=== PATIENT | female | born 1935 | race Caucasian/White ===

== ENCOUNTER 2016-09-24 19:43 | Emergency (ER) | payer MEDICARE, OTHER ==
[2016-09-24] MEDS ORDERED: KETOROLAC 30 MG/ML 1 ML VIAL IVP STA (20:22)
[2016-09-24] MEDS ORDERED: SODIUM CHLORIDE 0.9% 1,000 ML IV STA (20:22)
[2016-09-24] MEDS ORDERED: ACETAMINOPHEN TAB 500 MG TAB PO STA (20:22)
--- NOTE | 2016-09-24 20:48 | ED ---
General Adult HPI - General Chief complaint: Shortness of Breath Stated complaint: Congestion/Cough Time Seen by Provider: 09/24/16 20:15 Source: patient Mode of arrival: ambulatory Limitations: no limitations - History of Present Illness Initial comments: Patient is a 81-year-old female past medical history's presenting with shortness of breath, cough, congestion past 2 days. Patient admits to nonproductive cough. 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 Patient has not been taking any Tylenol, Motrin, [id number] cough medications for her symptoms. Denies flu vaccination. Patient went to [facility] for her symptoms for which she was given a breathing treatment as well as Rocephin IM. Chest x-ray mass versus pneumonia. Patient was sent to the ER for CT. Chest x-ray was reviewed by myself and concern for right middle lobe pneumonia. - Related Data Previous Rx's Medication Instructions Recorded Doxycycline Monohydrate [Monodox] 100 mg PO Q12HR #20 cap 09/24/16 Allergies Allergy/AdvReac Type Severity Reaction Status Date / Time No Known Allergies Allergy Verified 09/24/16 20:12 Review of Systems ROS Statement: Those systems with pertinent positive or pertinent negative responses have been documented in the HPI. Constitutional: No fever and no chills. HENT: +congestion, no rhinorrhea and no sore throat. Eyes: No discharge and no redness. Respiratory: + cough and +shortness of breath. Cardiovascular: No chest pain and no palpitations. Gastrointestinal: No nausea, no vomiting, no abdominal pain and no diarrhea. Genitourinary: No dysuria and no hematuria. Musculoskeletal: No back pain and no arthralgias. Skin: No pallor and no rash. Neurological: No dizziness and No headaches. ROS Other: All systems not noted in ROS Statement are negative. Past Medical History Past Medical History: Osteoarthritis (OA) History of Any Multi-Drug Resistant Organisms: None Reported Past Surgical History: Joint Replacement Additional Past Surgical History / Comment(s): lt knee replacement Past Psychological History: No Psychological Hx Reported Smoking Status: Former smoker Past Alcohol Use History: None Reported Additional Past Alcohol Use History / Comment(s): quit smoking approx 1974, smoked for approx 30 yrs Past Drug Use History: None Reported - Past Family History Father Family Medical History: Cancer Additional Family Medical History / Comment(s): lung Mother Additional Family Medical History / Comment(s): at age approx 90 General Exam - General Exam Comments Initial Comments: Constitutional: Patient appears well-developed and well-nourished. No distress. Warm to the touch. Head: Normocephalic and atraumatic. Eyes: Conjunctivae and EOM are normal. Right eye exhibits no discharge. Left eye exhibits no discharge. No scleral icterus. Neck: Normal range of motion. Neck supple. Cardiovascular: Normal rate and regular rhythm. No murmur heard. Pulmonary/Chest: Effort normal and breath sounds normal. No respiratory distress. No wheezes. Abdominal: Soft. No distension. There is no tenderness. There is no rebound and no guarding. Musculoskeletal: Normal range of motion. No edema or tenderness. Neurological: Patient alert and oriented to person, place, and time. Skin: Skin is warm and dry. Not diaphoretic. Nursing notes and vitals reviewed. Limitations: no limitations Course Vital Signs 09/24/16 09/24/16 09/24/16 20:04 20:36 21:31 Temperature 100.6 F H 99.3 F Pulse Rate 85 81 68 Respiratory 20 20 20 Rate Blood Pressure 174/84 143/64 142/73 O2 Sat by Pulse 92 L 94 L Oximetry 09/24/16 09/24/16 22:45 23:15 Temperature 98.4 F 98.2 F Pulse Rate 72 78 Respiratory 18 18 Rate Blood Pressure 112/72 116/72 O2 Sat by Pulse 94 L 98 Oximetry - Reevaluation(s) Reevaluation #1: Prior to discharge, patient was resting comfortably in bed. Course of stay improved. Denies pain. Discussed physical exam and diagnostic tests with patient. Questions answered and patient is agreeable to discharge with close follow up with Primary Care Physician. Instructed to return to Emergency Department if symptoms worsen. EKG Findings - EKG Comments: EKG Findings:: Rate 86. NSR with PVC. No ST-T wave changes. CO internal normal . QRS interval normal. QTc duration normal. Medical Decision Making - Medical Decision Making Patient is a 81-year-old female presenting with cough and congestion for the past 2 days. Patient with [facility] of concern for pneumonia. She was referred to ER for further management. WBC 6.8. BUN 18. Influenza negative. Chest x-ray concerning for right middle lobe pneumonia. Patient has no risk factors for age. Patient has a curb 65 score of 1 for her age. Patient was given option of hospitalization versus outpatient management and she is requesting outpatient management. Patient instructed to return for any worsening of symptoms or not able to tolerate antibiotics. - Lab Data Result diagrams: 09/24/16 20:45 09/24/16 20:45 Lab Results 09/24/16 09/24/16 09/24/16 Range/Units 20:45 20:45 20:45 WBC 6.8 (3.8-10.6) k/uL RBC 4.87 (3.80-5.40) m/uL Hgb 14.5 (11.4-16.0) gm/dL Hct 44.3 (34.0-46.0) % MCV 90.9 (80.0-100.0) fL MCH 29.8 (25.0-35.0) pg MCHC 32.7 (31.0-37.0) g/dL RDW 12.9 (11.5-15.5) % Plt Count 239 (150-450) k/uL Neutrophils % 72 % Lymphocytes % 17 % Monocytes % 7 % Eosinophils % 0 % Basophils % 1 % Neutrophils # 4.9 (1.3-7.7) k/uL Lymphocytes # 1.2 (1.0-4.8) k/uL Monocytes # 0.5 (0-1.0) k/uL Eosinophils # 0.0 (0-0.7) k/uL Basophils # 0.1 (0-0.2) k/uL Sodium 137 (137-145) mmol/L Potassium 4.0 (3.5-5.1) mmol/L Chloride 99 (98-107) mmol/L Carbon Dioxide 26 (22-30) mmol/L Anion Gap 12 mmol/L BUN 18 H (7-17) mg/dL Creatinine 1.02 (0.52-1.04) mg/dL Est GFR (MDRD) Af Amer >60 (>60 ml/min/1.73 sqM) Est GFR (MDRD) Non-Af 52 (>60 ml/min/1.73 sqM) Glucose 106 H (74-99) mg/dL Plasma Lactic Acid Toño 0.9 (0.7-2.0) mmol/L Calcium 10.3 H (8.4-10.2) mg/dL Magnesium 1.6 (1.6-2.3) mg/dL Influenza Type A RNA (Not Detectd) Influenza Type B (PCR) (Not Detectd) 09/24/16 Range/Units 21:00 WBC (3.8-10.6) k/uL RBC (3.80-5.40) m/uL Hgb (11.4-16.0) gm/dL Hct (34.0-46.0) % MCV (80.0-100.0) fL MCH (25.0-35.0) pg MCHC (31.0-37.0) g/dL RDW (11.5-15.5) % Plt Count (150-450) k/uL Neutrophils % % Lymphocytes % % Monocytes % % Eosinophils % % Basophils % % Neutrophils # (1.3-7.7) k/uL Lymphocytes # (1.0-4.8) k/uL Monocytes # (0-1.0) k/uL Eosinophils # (0-0.7) k/uL Basophils # (0-0.2) k/uL Sodium (137-145) mmol/L Potassium (3.5-5.1) mmol/L Chloride (98-107) mmol/L Carbon Dioxide (22-30) mmol/L Anion Gap mmol/L BUN (7-17) mg/dL Creatinine (0.52-1.04) mg/dL Est GFR (MDRD) Af Amer (>60 ml/min/1.73 sqM) Est GFR (MDRD) Non-Af (>60 ml/min/1.73 sqM) Glucose (74-99) mg/dL Plasma Lactic Acid Toño (0.7-2.0) mmol/L Calcium (8.4-10.2) mg/dL Magnesium (1.6-2.3) mg/dL Influenza Type A RNA Not Detected (Not Detectd) Influenza Type B (PCR) Not Detected (Not Detectd) Disposition Clinical Impression: CAP (community acquired pneumonia) Disposition: HOME SELF-CARE Condition: Good Instructions: Pneumonia (ED) Prescriptions: Doxycycline Monohydrate [Monodox] 100 mg PO Q12HR #20 cap Referrals: Maren Jones MD [Primary Care Provider] - 1-2 days
[2016-09-24 21:07] LABS: Basophils # (A) 0.1 k/uL (0-0.2); Basophils % (A) 1 %; CH 30.6; CHCM 33.7; Eosinophils % (A) 0 %; HCT 44.3 % (34.0-46.0); HDW 2.28; HGB 14.5 gm/dL (11.4-16.0); Luc # (Auto) 0.15; Luc % (Auto) 2; Lymphocytes # (A) 1.2 k/uL (1.0-4.8); Lymphocytes % (A) 17 %; MCH 29.8 pg (25.0-35.0); MCHC 32.7 g/dL (31.0-37.0); MCV 90.9 fL (80.0-100.0); Mean Platelet Volume 6.6; Monocytes # (A) 0.5 k/uL (0-1.0); Monocytes % (A) 7 %; Neutrophils # (A) 4.9 k/uL (1.3-7.7); Neutrophils % (A) 72 %; RBC 4.87 m/uL (3.80-5.40); RDW 12.9 % (11.5-15.5); WBC 6.8 k/uL (3.8-10.6); WBC (Perox) 6.85
[2016-09-24 21:15] LABS: Anion Gap 12 mmol/L; Blood Urea Nitrogen 18 mg/dL (7-17); Calcium 10.3 mg/dL (8.4-10.2); Carbon Dioxide 26 mmol/L (22-30); Chloride 99 mmol/L (98-107); Glucose 106 mg/dL (74-99); Magnesium 1.6 mg/dL (1.6-2.3); Non-African American GFR(MDRD) 52 (>60 ml/min/1.73 sqM); Sodium 137 mmol/L (137-145)
[2016-09-24 22:51] VITALS: RESP 18
--- NOTE | 2016-09-24 22:58 | XR ---
EXAMINATION TYPE: XR chest 2V DATE OF EXAM: 09/24/2016 10:53 PM COMPARISON: 09/22/2013 HISTORY: Cough and pneumonia TECHNIQUE: Frontal and lateral views of the chest are obtained. FINDINGS: There is a patchy area of pneumonic consolidation in the right midlung on the frontal view that measures 5 x 3 cm. The other lung lacey are clear. There are no hilar masses. Heart size is no rmal. There is no pleural effusion. There is spurring in the thoracic spine. Bony thorax is intact. T here is no heart failure. IMPRESSION: There is new pneumonic infiltrate in the right midlung compared to old exam and probably due to bronchopneumonia. Follow-up is recommended to show radiographic clearing.
[2016-09-24 23:16] VITALS: BP 116/72; PULSE 78; TEMP 98.2
== END 2016-09-24 23:17 | disposition home or self-care (01) ==
LOC: EC 19:43
DX: J18.9 Pneumonia, unspecified organism (principal); Z87.891 Personal history of nicotine dependence
CPT/HCPCS: 36415; 93005; 80048; 83605; 83735; 85025; 87040; 87502; 71020; 99285; 96374; 96361; J1885

== ENCOUNTER 2016-10-16 13:36 | Emergency (ER) | payer MEDICARE, OTHER ==
[2016-10-16 13:59] VITALS: RESP 18
[2016-10-16] MEDS ORDERED: IPRATROPIUM-ALBUTEROL 3 ML NEB INHALATION STA (15:37)
[2016-10-16] MEDS ORDERED: SODIUM CHLORIDE 0.9% 500 ML IV STA (15:37)
[2016-10-16] MEDS ORDERED: SODIUM CHLORIDE 0.9% 1,000 ML IV STA (15:37)
--- NOTE | 2016-10-16 15:58 | ED ---
General Adult HPI - General Chief complaint: Upper Respiratory Infection Stated complaint: cough/poss pneumonia Time Seen by Provider: 10/16/16 15:06 Source: patient, RN notes reviewed, old records reviewed Mode of arrival: ambulatory Limitations: no limitations - History of Present Illness Initial comments: This is a 81-year-old female ER for evaluation. This patient presents to ER for evaluation of shortness of breath cough and congestion. Patient does have a recent history and diagnosis of pneumonia. Patient has a remote history of smoking, but no other significant heart disease or lung disease. Patient at this time denies any chest pain states she will go with cough congestion and episodic chills this morning. No significant shortness of breath, no other sick contacts no travel history. Patient states she did have her pneumonia resolved - Related Data Home Medications Medication Instructions Recorded Confirmed Albuterol Nebulized [Ventolin 2.5 mg INHALATION RT-Q6H PRN 10/16/16 10/16/16 Nebulized] Ascorbic Acid [Vitamin C] 500 mg PO DAILY 10/16/16 10/16/16 Biotin 5 mg PO DAILY 10/16/16 10/16/16 Calcium Carbonate [Calcium] 600 mg PO BID 10/16/16 10/16/16 Cyanocobalamin [Vitamin B-12] 500 mcg PO DAILY 10/16/16 10/16/16 Multivitamins, Thera [Multivitamin] 1 tab PO DAILY 10/16/16 10/16/16 Belding-3 Fatty Acids/Fish Oil [Fish 1 cap PO BID 10/16/16 10/16/16 Oil 1,000 mg Softgel] Previous Rx's Medication Instructions Recorded Azithromycin [Zithromax Z-pack] 0 mg PO DIRECTED #6 tab 10/16/16 Benzonatate [Tessalon Perles] 100 mg PO TID #30 cap 10/16/16 Ibuprofen [Motrin] 600 mg PO Q8HR PRN #30 tab 10/16/16 Allergies Allergy/AdvReac Type Severity Reaction Status Date / Time No Known Allergies Allergy Verified 10/16/16 15:06 Review of Systems ROS Statement: Those systems with pertinent positive or pertinent negative responses have been documented in the HPI. ROS Other: All systems not noted in ROS Statement are negative. Past Medical History Past Medical History: Osteoarthritis (OA) History of Any Multi-Drug Resistant Organisms: None Reported Past Surgical History: Joint Replacement Additional Past Surgical History / Comment(s): lt knee replacement Past Psychological History: No Psychological Hx Reported Smoking Status: Former smoker Past Alcohol Use History: None Reported Additional Past Alcohol Use History / Comment(s): quit smoking approx 1974, smoked for approx 30 yrs Past Drug Use History: None Reported - Past Family History Father Family Medical History: Cancer Additional Family Medical History / Comment(s): lung Mother Additional Family Medical History / Comment(s): at age approx 90 General Exam Limitations: no limitations General appearance: alert, in no apparent distress, anxious Head exam: Present: atraumatic, normocephalic, normal inspection Eye exam: Present: normal appearance, PERRL, EOMI. Absent: scleral icterus, conjunctival injection, periorbital swelling ENT exam: Present: normal exam, mucous membranes moist Neck exam: Present: normal inspection. Absent: tenderness, meningismus, lymphadenopathy Respiratory exam: Present: normal lung sounds bilaterally. Absent: respiratory distress, wheezes, rales, rhonchi, stridor Cardiovascular Exam: Present: regular rate, normal rhythm, normal heart sounds. Absent: systolic murmur, diastolic murmur, rubs, gallop, clicks GI/Abdominal exam: Present: soft, normal bowel sounds. Absent: distended, tenderness, guarding, rebound, rigid Extremities exam: Present: normal inspection, full ROM, normal capillary refill. Absent: tenderness, pedal edema, joint swelling, calf tenderness Back exam: Present: normal inspection Neurological exam: Present: alert, oriented X3, CN II-XII intact Psychiatric exam: Present: normal affect, normal mood Skin exam: Present: warm, dry, intact, normal color. Absent: rash Course Vital Signs 10/16/16 10/16/16 10/16/16 13:55 16:13 16:32 Temperature 99.8 F H Pulse Rate 83 83 86 Respiratory 18 Rate Blood Pressure 169/86 O2 Sat by Pulse 96 Oximetry 10/16/16 18:02 Temperature 100.9 F H Pulse Rate 93 Respiratory 18 Rate Blood Pressure 150/65 O2 Sat by Pulse 99 Oximetry - Reevaluation(s) Reevaluation #1: 10/16/16 18:52 Patient on recheck is improved after breathing treatment, no acute distress, no shortness of breath EKG Findings - EKG Comments: EKG Findings:: EKG shows normal sinus rhythm rate of 75, MA 140, QRS 90, QTC 426 Medical Decision Making - Medical Decision Making Female with cough congestion follow recurrence of pneumonia, patient was treated with Bactrim for last exacerbation. Patient also noted fever. Increasing cough and congestion. Lab work looks normal patient is in [place] for distress, vital signs are normal stable x-ray is negative CT showing mild pneumonia we'll treat for atypical antibiotic coverage, patient can be discharged home, feels good to go home - Lab Data Result diagrams: 10/16/16 15:52 10/16/16 15:52 Lab Results 10/16/16 10/16/16 10/16/16 Range/Units 15:52 15:52 15:52 WBC 10.9 H (3.8-10.6) k/uL RBC 5.09 (3.80-5.40) m/uL Hgb 15.1 (11.4-16.0) gm/dL Hct 46.8 H (34.0-46.0) % MCV 92.1 (80.0-100.0) fL MCH 29.8 (25.0-35.0) pg MCHC 32.4 (31.0-37.0) g/dL RDW 13.2 (11.5-15.5) % Plt Count 241 (150-450) k/uL Neutrophils % 83 % Lymphocytes % 12 % Monocytes % 4 % Eosinophils % 1 % Basophils % 1 % Neutrophils # 9.0 H (1.3-7.7) k/uL Lymphocytes # 1.3 (1.0-4.8) k/uL Monocytes # 0.4 (0-1.0) k/uL Eosinophils # 0.1 (0-0.7) k/uL Basophils # 0.1 (0-0.2) k/uL PT 10.2 (9.0-12.0) sec INR 1.0 (<1.1) APTT 23.9 (22.0-30.0) sec D-Dimer 0.87 H (<0.60) mg/L FEU Sodium (137-145) mmol/L Potassium (3.5-5.1) mmol/L Chloride (98-107) mmol/L Carbon Dioxide (22-30) mmol/L Anion Gap mmol/L BUN (7-17) mg/dL Creatinine (0.52-1.04) mg/dL Est GFR (MDRD) Af Amer (>60 ml/min/1.73 sqM) Est GFR (MDRD) Non-Af (>60 ml/min/1.73 sqM) Glucose (74-99) mg/dL Calcium (8.4-10.2) mg/dL Magnesium (1.6-2.3) mg/dL Total Bilirubin (0.2-1.3) mg/dL AST (14-36) U/L ALT (9-52) U/L Alkaline Phosphatase (38-126) U/L Total Creatine Kinase 63 (30-135) U/L CK-MB (CK-2) 0.8 (0.0-2.4) ng/mL CK-MB (CK-2) Rel Index 1.3 Troponin I <0.012 (0.000-0.034) ng/mL NT-Pro-B Natriuret Pep pg/mL Total Protein (6.3-8.2) g/dL Albumin (3.5-5.0) g/dL 10/16/16 10/16/16 Range/Units 15:52 15:52 WBC (3.8-10.6) k/uL RBC (3.80-5.40) m/uL Hgb (11.4-16.0) gm/dL Hct (34.0-46.0) % MCV (80.0-100.0) fL MCH (25.0-35.0) pg MCHC (31.0-37.0) g/dL RDW (11.5-15.5) % Plt Count (150-450) k/uL Neutrophils % % Lymphocytes % % Monocytes % % Eosinophils % % Basophils % % Neutrophils # (1.3-7.7) k/uL Lymphocytes # (1.0-4.8) k/uL Monocytes # (0-1.0) k/uL Eosinophils # (0-0.7) k/uL Basophils # (0-0.2) k/uL PT (9.0-12.0) sec INR (<1.1) APTT (22.0-30.0) sec D-Dimer (<0.60) mg/L FEU Sodium 142 (137-145) mmol/L Potassium 4.0 (3.5-5.1) mmol/L Chloride 104 (98-107) mmol/L Carbon Dioxide 27 (22-30) mmol/L Anion Gap 11 mmol/L BUN 14 (7-17) mg/dL Creatinine 0.80 (0.52-1.04) mg/dL Est GFR (MDRD) Af Amer >60 (>60 ml/min/1.73 sqM) Est GFR (MDRD) Non-Af >60 (>60 ml/min/1.73 sqM) Glucose 108 H (74-99) mg/dL Calcium 10.3 H (8.4-10.2) mg/dL Magnesium 2.0 (1.6-2.3) mg/dL Total Bilirubin 0.9 (0.2-1.3) mg/dL AST 32 (14-36) U/L ALT 39 (9-52) U/L Alkaline Phosphatase 71 (38-126) U/L Total Creatine Kinase (30-135) U/L CK-MB (CK-2) (0.0-2.4) ng/mL CK-MB (CK-2) Rel Index Troponin I (0.000-0.034) ng/mL NT-Pro-B Natriuret Pep 119 pg/mL Total Protein 8.2 (6.3-8.2) g/dL Albumin 4.6 (3.5-5.0) g/dL - Radiology Data Radiology results: report reviewed (Chest x-ray is improved, CT shows probable residual pneumonia), image reviewed Disposition Clinical Impression: CAP (community acquired pneumonia) Disposition: HOME SELF-CARE Condition: Good Instructions: Community Acquired Pneumonia (ED) Prescriptions: Azithromycin [Zithromax Z-pack] 0 mg PO DIRECTED #6 tab Benzonatate [Tessalon Perles] 100 mg PO TID #30 cap Ibuprofen [Motrin] 600 mg PO Q8HR PRN #30 tab PRN Reason: Fever Referrals: Maren Jones MD [Primary Care Provider] - 1-2 days
[2016-10-16 16:11] LABS: Basophils # (A) 0.1 k/uL (0-0.2); Basophils % (A) 1 %; CH 30.3; Eosinophils # (A) 0.1 k/uL (0-0.7); Eosinophils % (A) 1 %; HCT 46.8 % (34.0-46.0); HDW 2.32; HGB 15.1 gm/dL (11.4-16.0); Luc % (Auto) 1; Lymphocytes # (A) 1.3 k/uL (1.0-4.8); Lymphocytes % (A) 12 %; MCH 29.8 pg (25.0-35.0); MCHC 32.4 g/dL (31.0-37.0); MCV 92.1 fL (80.0-100.0); Mean Platelet Volume 6.2; Monocytes # (A) 0.4 k/uL (0-1.0); Monocytes % (A) 4 %; Neutrophils % (A) 83 %; RBC 5.09 m/uL (3.80-5.40); RDW 13.2 % (11.5-15.5); WBC 10.9 k/uL (3.8-10.6); WBC (Perox) 10.76
[2016-10-16 16:19] LABS: ALT 39 U/L (9-52); AST 32 U/L (14-36); Alkaline Phosphatase 71 U/L (38-126); Anion Gap 11 mmol/L; Blood Urea Nitrogen 14 mg/dL (7-17); Calcium 10.3 mg/dL (8.4-10.2); Carbon Dioxide 27 mmol/L (22-30); Chloride 104 mmol/L (98-107); Glucose 108 mg/dL (74-99); Non-African American GFR(MDRD) >60 (>60 ml/min/1.73 sqM); Sodium 142 mmol/L (137-145); Total Bilirubin 0.9 mg/dL (0.2-1.3); Total Protein 8.2 g/dL (6.3-8.2)
[2016-10-16 16:27] LABS: Prothrombin Time 10.2 sec (9.0-12.0)
[2016-10-16 16:28] LABS: Partial Thromboplastin Time 23.9 sec (22.0-30.0)
[2016-10-16 16:39] LABS: Creatine Kinase 63 U/L (30-135)
[2016-10-16 16:53] LABS: Creatine Kinase MB 0.8 ng/mL (0.0-2.4); Troponin I <0.012 ng/mL (0.000-0.034)
--- NOTE | 2016-10-16 16:58 | XR ---
EXAMINATION TYPE: XR chest 2V DATE OF EXAM: 10/16/2016 4:52 PM COMPARISON: Prior chest x-ray 24 September 2016 HISTORY: Difficulty breathing, shortness of breath and cough TECHNIQUE: Frontal and lateral views of the chest are obtained. FINDINGS: There is no focal air space opacity, pleural effusion, or pneumothorax seen. The cardiac silhouette size is within normal limits. There is improvement in the airspace disease seen in the r ight upper lobe on prior exam. There are overlying cardiac leads. No pneumothorax or pleural effusion . Cardiac mediastinal silhouette, pulmonary vascularity and rick are stable. Prominent lung volumes s uggest underlying COPD. The aorta is dense. The osseous structures are intact. IMPRESSION: Improvement in patient's pneumonia.
[2016-10-16] MEDS ORDERED: RX INFO: IV CONTRAST WAS GIVEN 1 EACH MISC MISCELLANE PRN (17:18)
--- NOTE | 2016-10-16 18:18 | CT ---
EXAMINATION TYPE: CT angio chest DATE OF EXAM: 10/16/2016 5:57 PM COMPARISON: 09/22/2013 HISTORY: cough today. Hx of recent pneumonia. CT DLP: 316.3 mGycm Automated exposure control for dose reduction was used. CONTRAST: CTA scan of the thorax is performed with IV Contrast, patient injected with 50 mL of Omnipaque 350, p ulmonary embolism protocol. There are 3-D post processed images.. FINDINGS: There is a mild reticular infiltrate in the right midlung. There is no evidence of a pulmonary mass. There is no pleural effusion. I see no definite filling defects in the pulmonary arteries. Thoracic a corry shows no evidence of aneurysm or dissection. Heart size is normal. There is no pericardial effus ion. There is spurring in the thoracic spine. There is a hiatal hernia. There are no hilar masses. Th ere is no mediastinal adenopathy. IMPRESSION: NO EVIDENCE OF PULMONARY EMBOLISM. THERE IS A SMALL RETICULAR INFILTRATE IN THE RIGHT MIDLUNG IS NEW COMPARED TO OLD EXAM. THERE IS CLEARING OF THE ATELECTASIS AT THE RIGHT LUNG BASE COMPARED TO OLD EXA M.
[2016-10-16] MEDS ORDERED: AZITHROMYCIN 500 MG TAB PO STA (18:43)
[2016-10-16] MEDS ORDERED: BENZONATATE 100 MG CAP PO STA (18:43)
[2016-10-16 19:17] VITALS: BP 131/58; PULSE 87; TEMP 99.2
== END 2016-10-16 19:17 | disposition home or self-care (01) ==
LOC: EC 13:36
DX: J18.9 Pneumonia, unspecified organism (principal); Z87.01 Personal history of pneumonia (recurrent); Z87.891 Personal history of nicotine dependence
CPT/HCPCS: 36415; 94640; 93005; 85379; 83880; 80053; 82550; 82553; 83735; 84484; 85025; 85610; 85730; 87502; 71020; 71275; 99284; 96360; Q9967

== ENCOUNTER → 2019-05-08 | Outpatient (CLI) | payer MEDICARE, OTHER ==
--- NOTE | 2019-05-08 14:42 | BD ---
EXAMINATION TYPE: Axial Bone Density DATE OF EXAM: 05/08/2019 COMPARISON: DEXA bone scan 2012 CLINICAL HISTORY: age related osteoporosis Height: 4' 11 Weight: 158 FRAX RISK QUESTIONS: History of Fracture in Adulthood: y Secondary Osteoporosis: 3. Menopause before 45: y RISK FACTORS HISTORY OF: History of Wrist Fracture: left When: age 81 Surgery )/Wrist /left): When: age 81 Postmenopausal woman: y MEDICATIONS: Additional Medications: Additional History: EXAM MEASUREMENTS: Bone mineral densitometry was performed using the [employer] System. Bone mineral density as measured about the Lumbar spine is: ----- L1-L4(G/cm2): 1.016 T Score Values are as follows: ----- L2: -2.4 ----- L3: -0.6 ----- L4: -1.0 ----- L1-L4: -1.4 Bone mineral density has: Increased 7.7% since study of: 02/20/2013 Bone mineral density about the R hip (g/cm2): 0.780 Bone mineral density about the L hip (g/cm2): 0.782 T Score values are as follows: -----R Neck: -1.9 -----L Neck: -1.8 -----R Total: -1.4 -----L Total: -1.6 Bone mineral density has: Decreased 02/20/2013 IMPRESSION: Osteopenia (T Score between -2.5 and -1) is redemonstrated in low back and both hips. There remains slightly increased risk of fracture and the patient may be considered for treatment. Re-Screen 2-5 years. NOTE: T-SCORE=SD OF THE YOUNG ADULT MEAN.
== END | disposition home or self-care (01) ==
LOC: RADBDWWP 12:47
PROVIDERS: ATTEND Family Medicine
DX: M85.89 Other specified disorders of bone density and structure, multiple sites (principal)
CPT/HCPCS: 77080

== ENCOUNTER → 2020-11-18 | Outpatient (CLI) | payer MEDICARE, OTHER ==
--- NOTE | 2020-11-18 13:35 | US ---
EXAMINATION TYPE: US kidneys/renal and bladder DATE OF EXAM: 11/18/2020 COMPARISON: CT Chest CLINICAL HISTORY: N28.1 Cyst of kidney, acquired. Pt had outside MRI showing cyst on right kidney per patient EXAM MEASUREMENTS: Right Kidney: 9.0 x 3.5 x 4.3 cm Left Kidney: 11.3 x 5.9 x 4.4 cm Right Kidney: Cyst lateral= 1.1 x 1.0 x 1.2 cm, lower pole gassed out Left Kidney: Difficult to visualize due to overlying bowel gas, no evidence of hydro Bladder: wnl Bilateral Jets seen: Yes There is no evidence for hydronephrosis at this point in time. No nephrolithiasis is seen. No solid masses are identified. The urinary bladder is anechoic. Bilateral ureteral jets are seen. IMPRESSION: Renal cystic changes as noted.
== END ==
LOC: RADUSWWP 13:02
PROVIDERS: ATTEND Family Medicine
DX: N28.1 Cyst of kidney, acquired (principal)
CPT/HCPCS: 76770

== ENCOUNTER → 2021-05-22 | Outpatient (CLI) | payer MEDICARE, OTHER ==
--- NOTE | 2021-05-22 15:11 | US ---
EXAMINATION TYPE: US kidneys/renal and bladder DATE OF EXAM: 05/22/2021 COMPARISON: Ultrasound 11/18/2020 CLINICAL HISTORY: 6 MO F/U; N28.1 cyst of kidney. EXAM MEASUREMENTS: Right Kidney: 8.6 x 4.0 x 3.9 Left Kidney: 9.7 x 4.1 x 4.8 cm Extensive overlying bowel gas, technically difficult study. Right kidney pictures in series. Right Kidney: Superior pole obscured by bowel gas, measures small , question some mild pelvic caliect asis centrally, small cystic focus measuring 1 cm at the lower pole Left Kidney: cyst measuring 1.0 x 1.2 x 1.0cm Bladder: wnl No nephrolithiasis is seen. Cortical medullary differentiation is maintained. IMPRESSION: Suspect some mild pelvic caliectasis centrally within the right kidney, there is a simple cyst as not ed on prior exam lower pole right kidney
== END | disposition home or self-care (01) ==
LOC: RADUSWWP 14:02
PROVIDERS: ATTEND Family Medicine
DX: N28.1 Cyst of kidney, acquired (principal)
CPT/HCPCS: 76770

== ENCOUNTER 2023-05-01 16:52 | Emergency (ER) | payer MEDICARE, OTHER ==
[2023-05-01 16:57] VITALS: BP 174/84; PULSE 77; TEMP 98
[2023-05-01] MEDS ORDERED: KETOROLAC 15 MG/ML 1 ML VIAL IM STA (17:29)
--- NOTE | 2023-05-01 17:57 | XR ---
EXAMINATION TYPE: XR hand complete LT DATE OF EXAM: 05/01/2023 5:49 PM INDICATION: Patient age:Female; 88 years old; Reason for study: Fall, trauma; [facility]. COMPARISON: Left hand radiograph 01/21/2015 TECHNIQUE: Frontal, lateral and oblique views of the left hand were obtained. FINDINGS: Diffuse bone demineralization. Osteoarthritic changes with joint space narrowing and sclero sis with marginal spurring at second digit DIP joint, fifth digit DIP and PIP joints and third MCP sarah int. No osseous erosions. Fixation hardware involving the distal radius. Normal alignment of the visu alized joints. No acute osseous pathology is identified. No evidence of soft tissue swelling. IMPRESSION: 1. No acute osseous pathology. 2. Mild to moderate osteoarthritic changes. 3. Post fixation changes of the distal radius.
--- NOTE | 2023-05-01 17:58 | ED ---
General Adult HPI - General Chief complaint: Fall Stated complaint: fell down stairs NATHAN Time Seen by Provider: 05/01/23 17:00 Source: patient Mode of arrival: ambulatory Limitations: no limitations - History of Present Illness Initial comments: This is a 88-year-old female with no reported past medical history presents emergency department after mechanical fall. The patient stated that she fell down the last 2 steps out of her house landing on her left chest wall. The patient did not hit her head and did not lose consciousness. The patient was ambulatory on scene and came into the emergency department approximately 2 hours after the fall. The patient stated that she had bruising on the left anterior chest wall and had some minor shortness of breath secondary to the pain. The patient also had reported pain on the knuckles of the left hand but had full range of motion. The patient also reported pain to the anterior portion of her left knee with minor bruising noted. The patient denied any other acute pain or complaints at this time and did have full range of motion of all extremities. The patient was otherwise resting in bed comfortably. - Related Data Home Medications Medication Instructions Recorded Confirmed Albuterol Nebulized [Ventolin 2.5 mg INHALATION RT-Q6H PRN 10/16/16 10/16/16 Nebulized] Ascorbic Acid [Vitamin C] 500 mg PO DAILY 10/16/16 10/16/16 Biotin 5 mg PO DAILY 10/16/16 10/16/16 Calcium Carbonate [Calcium] 600 mg PO BID 10/16/16 10/16/16 Cyanocobalamin [Vitamin B-12] 500 mcg PO DAILY 10/16/16 10/16/16 Multivitamins, Thera [Multivitamin] 1 tab PO DAILY 10/16/16 10/16/16 [place]-3 Fatty Acids/Fish Oil [Fish 1 cap PO BID 10/16/16 10/16/16 Oil 1,000 mg Softgel] Previous Rx's Medication Instructions Recorded Azithromycin [Zithromax Z-pack (6 0 mg PO DIRECTED #6 tab 10/16/16 tabs)] Benzonatate [Tessalon Perles] 100 mg PO TID #30 cap 10/16/16 Ibuprofen [Motrin] 600 mg PO Q8HR PRN #30 tab 10/16/16 Lidocaine 5% Patch [Lidoderm] 1 patch TOPICAL DAILY #10 patch 05/01/23 Naproxen [EC-Naprosyn] 500 mg PO BID #30 tab 05/01/23 methocarbamoL [Robaxin-750] 750 mg PO TID #30 tab 05/01/23 Allergies Allergy/AdvReac Type Severity Reaction Status Date / Time No Known Allergies Allergy Verified 05/01/23 16:57 Review of Systems ROS Statement: Those systems with pertinent positive or pertinent negative responses have been documented in the HPI. ROS Other: All systems not noted in ROS Statement are negative. Past Medical History Past Medical History: Osteoarthritis (OA) History of Any Multi-Drug Resistant Organisms: None Reported Past Surgical History: Joint Replacement Additional Past Surgical History / Comment(s): lt knee replacement Past Psychological History: No Psychological Hx Reported Smoking Status: Never smoker Past Alcohol Use History: None Reported Past Drug Use History: None Reported - Past Family History Father Family Medical History: Cancer Additional Family Medical History / Comment(s): lung Mother Additional Family Medical History / Comment(s): at age approx 90 General Exam Limitations: no limitations General appearance: alert, in no apparent distress Head exam: Present: atraumatic, normocephalic, normal inspection Eye exam: Present: normal appearance, PERRL Pupils: Present: normal accommodation ENT exam: Present: normal exam, normal oropharynx, mucous membranes moist Neck exam: Present: normal inspection, full ROM Respiratory exam: Present: normal lung sounds bilaterally, chest wall tenderness (Mild TTP over the left anterior chest wall with noted contusion) Cardiovascular Exam: Present: regular rate, normal rhythm, normal heart sounds GI/Abdominal exam: Present: soft, normal bowel sounds Extremities exam: Present: normal inspection, full ROM, tenderness (Mild TTP over the anterior, inferior left knee) Back exam: Present: normal inspection, full ROM Neurological exam: Present: alert, oriented X3, CN II-XII intact Psychiatric exam: Present: normal affect, normal mood Skin exam: Present: warm, dry Course Vital Signs 05/01/23 16:54 Temperature 98.0 F Pulse Rate 77 Respiratory 20 Rate Blood Pressure 174/84 O2 Sat by Pulse 96 Oximetry Medical Decision Making - Medical Decision Making Was pt. sent in by a medical professional or institution (, PA, DEBUBBLIZER, urgent care, hospital, or long term...) When possible be specific @ -No Did you speak to anyone other than the patient for history (EMS, parent, family, police, friend...)? What history was obtained from this source @ -No Did you review nursing and triage notes (agree or disagree)? Why? @ -I reviewed and agree with nursing and triage notes Were old charts reviewed (outside hosp., previous admission, EMS record, old EKG, old radiological studies, urgent care reports/EKG's, long term records)? Report findings @ -No old charts were reviewed Differential Diagnosis (chest pain, altered mental status, abdominal pain women, abdominal pain men, vaginal bleeding, weakness, fever, dyspnea, syncope, headache, dizziness, GI bleed, back pain, seizure, CVA, palpatations, mental health)? @ -Left knee contusion, left chest wall contusion, abrasions EKG interpreted by me (3pts min.). @ -None X-rays interpreted by me (1pt min.). @ -Chest x-ray was obtained and was interpreted by myself showing chronic changes without acute process. Left hand x-ray was obtained and was interpreted by myself showing no acute osseous pathology. There is mild to moderate osteo phytic changes and post fixation changes of the distal radius. The left knee x- ray was also obtained and was interpreted by myself showing no acute pathology noted. CT interpreted by me (1pt min.). @ -None done U/S interpreted by me (1pt. min.). @ -None done What testing was considered but not performed or refused? (CT, X-rays, U/S, labs)? Why? @ -None What meds were considered but not given or refused? Why? @ -None Did you discuss the management of the patient with other professionals (professionals i.e. , PA, DEBUBBLIZER, lab, RT, psych nurse, executive secretary social welfare, manager patient, teacher, disciplinary hearing officer, case resource manager)? Give summary @ -No Was smoking cessation discussed for >3mins.? @ -No Was critical care preformed (if so, how long)? @ -No Were there social determinants of health that impacted care today? How? (Homelessness, low income, unemployed, alcoholism, drug addiction, transportation, low edu. Level, literacy, decrease access to med. care, half-way, rehab)? @ -No Was there de-escalation of care discussed even if they declined (Discuss DNR or withdrawal of care, Hospice)? DNR status @ -No What co-morbidities impacted this encounter? (DM, HTN, Smoking, COPD, CAD, Cancer, CVA, ARF, Chemo, Hep., AIDS, mental health diagnosis, sleep apnea, morbid obesity)? @ -None Was patient admitted / discharged? Hospital course, mention meds given and route, prescriptions, significant lab abnormalities, going to OR and other pertinent info. @ -The patient was seen and evaluated emergency department. Physical exam, the patient was resting in bed without any acute distress. Vital signs admission were stable. X-rays were obtained and were within normal limits. Patient physical exam, the patient likely just had a contusion of the left chest wall and left knee. The patient did receive a dose of Toradol in the emergency department and was stable for discharge home. The patient was advised to follow-up with her primary care physician for further workup and evaluations report back to the emergency department if her symptoms became acutely worse. The patient was agreeable to this and was discharged home in stable condition. Undiagnosed new problem with uncertain prognosis? @ -No Drug Therapy requiring intensive monitoring for toxicity (Heparin, Nitro, Insulin, Cardizem)? @ -No Were any procedures done? @ -No Diagnosis/symptom? @ -Fall, left anterior chest wall contusion, left knee contusion Acute, or Chronic, or Acute on Chronic? @ -Acute Uncomplicated (without systemic symptoms) or Complicated (systemic symptoms)? @ -Uncomplicated Side effects of treatment? @ -No Exacerbation, Progression, or Severe Exacerbation? @ -No Poses a threat to life or bodily function? How? (Chest pain, [place], [place], pneumonia, PE, COPD, DKA, ARF, appy, cholecystitis, CVA, Diverticulitis, Homicidal, Suicidal, threat to staff... and all critical care pts) @ -No Disposition Clinical Impression: Fall, Contusion of left knee, Chest wall contusion Disposition: HOME SELF-CARE Condition: Stable Instructions (If sedation given, give patient instructions): Fall Prevention for Older Adults (ED), Contusion in Adults (ED), Chest Wall Pain (ED) Prescriptions: Naproxen [EC-Naprosyn] 500 mg PO BID #30 tab Lidocaine 5% Patch [Lidoderm] 1 patch TOPICAL DAILY #10 patch methocarbamoL [Robaxin-750] 750 mg PO TID #30 tab Is patient prescribed a controlled substance at d/c from ED?: No Referrals: Maren Jones MD [Primary Care Provider] - 1-2 days Time of Disposition: 18:00
--- NOTE | 2023-05-01 17:59 | XR ---
EXAMINATION TYPE: XR knee complete LT DATE OF EXAM: 05/01/2023 5:52 PM INDICATION: Patient age:Female; 88 years old; Reason for study: Fall, trauma; [facility]. COMPARISON: Left knee radiograph 08/18/2013 TECHNIQUE: The Left knee(s) was examined in 3 projections. Frontal, lateral and oblique. FINDINGS: Postsurgical changes from left knee arthroplasty with distal femoral and proximal tibial co mponents. Hardware appears intact with appropriate alignment. No soft tissue swelling or joint effusi on. IMPRESSION: 1. No acute osseous pathology. 2. Post arthroplasty changes of the left knee. Hardware appears intact.
--- NOTE | 2023-05-01 18:00 | XR ---
EXAMINATION TYPE: XR chest 2V DATE OF EXAM: 05/01/2023 5:55 PM COMPARISON: Chest radiographs from 10/16/2016 TECHNIQUE: XR chest 2V Frontal and lateral views of the chest. CLINICAL INDICATION:Female, 88 years old with history of Fall, trauma; FINDINGS: Lungs/Pleura: There is no evidence of pleural effusion, focal consolidation, or pneumothorax. Chroni c senescent parenchymal change. Pulmonary vascularity: Unremarkable. Heart/mediastinum: Cardiomediastinal silhouette is unremarkable. Musculoskeletal: Multiple level degenerative disc disease changes seen throughout the spine. No acute osseous abnormality. Bilateral AC joint arthropathy. IMPRESSION: Chronic changes without acute process.
[2023-05-01 18:41] VITALS: RESP 18
== END 2023-05-01 18:41 | disposition home or self-care (01) ==
LOC: EC 16:52
DX: S80.02XA Contusion of left knee, initial encounter (principal); S20.212A Contusion of left front wall of thorax, initial encounter; W10.9XXA Fall (on) (from) unspecified stairs and steps, initial encounter
CPT/HCPCS: 73130; 73562; 71046; 99283; 96372; J1885

== ENCOUNTER 2024-11-27 06:53 | Emergency (ER) | payer MEDICARE, OTHER ==
[2024-11-27 07:00] VITALS: TEMP 97.8
[2024-11-27] MEDS: SODIUM CHLORIDE 0.9% 1,000 ML IV ONE (07:30)
[2024-11-27] MEDS: KETOROLAC 15 MG/ML 1 ML VIAL IVP STA (07:30)
[2024-11-27 07:36] LABS: Basophils # (A) 0.1 k/uL (0-0.2); Basophils % (A) 1 %; Eosinophils # (A) 0.1 k/uL (0-0.7); Eosinophils % (A) 1 %; HCT 44.9 % (34.0-46.0); HGB 14.5 gm/dL (11.4-16.0); Lymphocytes # (A) 1.9 k/uL (1.0-4.8); Lymphocytes % (A) 27 %; MCH 29.7 pg (25.0-35.0); MCHC 32.3 g/dL (31.0-37.0); MCV 91.9 fL (80.0-100.0); Mean Platelet Volume 6.8; Monocytes # (A) 0.4 k/uL (0-1.0); Monocytes % (A) 5 %; Neutrophils # (A) 4.7 k/uL (1.3-7.7); Neutrophils % (A) 65 %; Platelet Count 241 k/uL (150-450); RBC 4.88 m/uL (3.80-5.40); RDW 13.1 % (11.5-15.5); WBC 7.1 k/uL (3.8-10.6)
--- NOTE | 2024-11-27 07:42 | ED ---
Abdominal Pain HPI - General Chief Complaint: Abdominal Pain Stated Complaint: Abd pain Time Seen by Provider: 11/27/24 07:00 Source: patient, RN notes reviewed Mode of arrival: ambulatory Limitations: no limitations - History of Present Illness Initial Comments: 89-year-old female presents emergency department complaining of abdominal pain. Patient states that pain started around 330 states has been persistent pain. Patient states that show third time she has had this type of pain she was evaluated here in the past for this. She states she was told if pain persist she should have her gallbladder looked at. Patient denies any fevers or chills no prior abdominal surgeries she states pain is in her upper abdomen radiates to her upper back shoulder region she states that she has had no vomiting develops no dysuria - Related Data Home Medications Medication Instructions Recorded Confirmed Albuterol Nebulized [Ventolin 2.5 mg INHALATION RT-Q6H PRN 10/16/16 10/16/16 Nebulized] Ascorbic Acid [Vitamin C] 500 mg PO DAILY 10/16/16 10/16/16 Biotin 5 mg PO DAILY 10/16/16 10/16/16 Calcium Carbonate [Calcium] 600 mg PO BID 10/16/16 10/16/16 Cyanocobalamin [Vitamin B-12] 500 mcg PO DAILY 10/16/16 10/16/16 Multivitamins, Thera [Multivitamin] 1 tab PO DAILY 10/16/16 10/16/16 [place]-3 Fatty Acids/Fish Oil [Fish 1 cap PO BID 10/16/16 10/16/16 Oil 1,000 mg Softgel] Previous Rx's Medication Instructions Recorded Azithromycin [Zithromax Z-pack (6 0 mg PO DIRECTED #6 tab 10/16/16 tabs)] Benzonatate [Tessalon Perles] 100 mg PO TID #30 cap 10/16/16 Ibuprofen [Motrin] 600 mg PO Q8HR PRN #30 tab 10/16/16 Lidocaine 5% Patch [Lidoderm] 1 patch TOPICAL DAILY #10 patch 05/01/23 Naproxen [EC-Naprosyn] 500 mg PO BID #30 tab 05/01/23 methocarbamoL [Robaxin-750] 750 mg PO TID #30 tab 05/01/23 Pantoprazole [Protonix] 40 mg PO DAILY #30 tab 11/27/24 Allergies Allergy/AdvReac Type Severity Reaction Status Date / Time No Known Allergies Allergy Verified 05/01/23 16:57 Review of Systems ROS Statement: Those systems with pertinent positive or pertinent negative responses have been documented in the HPI. ROS Other: All systems not noted in ROS Statement are negative. Past Medical History Past Medical History: Osteoarthritis (OA) Additional Past Medical History / Comment(s): Mildly allergic to the sun History of Any Multi-Drug Resistant Organisms: None Reported Past Surgical History: Joint Replacement Additional Past Surgical History / Comment(s): lt knee replacement Past Psychological History: No Psychological Hx Reported Smoking Status: Never smoker Past Alcohol Use History: None Reported Past Drug Use History: None Reported - Past Family History Father Family Medical History: Cancer Additional Family Medical History / Comment(s): lung Mother Additional Family Medical History / Comment(s): at age approx 90 General Exam Limitations: no limitations General appearance: alert, in no apparent distress Head exam: Present: atraumatic, normocephalic, normal inspection Eye exam: Present: normal appearance, PERRL, EOMI. Absent: scleral icterus, conjunctival injection, periorbital swelling Respiratory exam: Present: normal lung sounds bilaterally. Absent: respiratory distress, wheezes, rales, rhonchi, stridor Cardiovascular Exam: Present: regular rate, normal rhythm, normal heart sounds. Absent: systolic murmur, diastolic murmur, rubs, gallop, clicks GI/Abdominal exam: Present: soft, tenderness (Epigastric right upper quadrant), normal bowel sounds. Absent: distended, guarding, rebound, rigid Back exam: Absent: CVA tenderness (R), CVA tenderness (L) Course Vital Signs 11/27/24 11/27/24 11/27/24 06:57 09:14 10:41 Temperature 97.8 F Pulse Rate 77 59 L 62 Respiratory 18 16 16 Rate Blood Pressure 178/74 137/84 147/71 O2 Sat by Pulse 94 L 94 L 95 Oximetry Medical Decision Making - Medical Decision Making Was pt. sent in by a medical professional or institution (, PA, SOLUTIONS DEVELOPER, urgent care, hospital, or fci...) When possible be specific @ -No Did you speak to anyone other than the patient for history (EMS, parent, family, police, friend...)? What history was obtained from this source @ -No Did you review nursing and triage notes (agree or disagree)? Why? @ -I reviewed and agree with nursing and triage notes Were old charts reviewed (outside hosp., previous admission, EMS record, old EKG, old radiological studies, urgent care reports/EKG's, fci records)? Report findings @ -No old charts were reviewed Differential Diagnosis (chest pain, altered mental status, abdominal pain women, abdominal pain men, vaginal bleeding, weakness, fever, dyspnea, syncope, headache, dizziness, GI bleed, back pain, seizure, CVA, palpatations, mental health, musculoskeletal)? @ -Differential Abdominal Pain Women: Appendicitis, Cholecystitis, diverticulosis, ischemic bowel, pancreatitis, hepatitis, UTI, gastroenteritis, AAA, incarcerated hernia, bowel obstruction, constipation, inflammatory bowel, hepatitis, peptic ulcer disease, splenic infarction, perforated viscus, vulvitis, ovarian torsion, PID, kidney stone, placenta abruption, this is not meant to be an all-inclusive list EKG interpreted by me (3pts min.). @ -As above X-rays interpreted by me (1pt min.). @ -None done CT interpreted by me (1pt min.). @ -CT of the abdomen pelvis showing evidence of uncomplicated gastritis, there is a right sided diaphragmatic hernia. U/S interpreted by me (1pt. min.). @ -ALT on gallbladder showing no acute disease, limited exam, overlying bowel gas pattern What testing was considered but not performed or refused? (CT, X-rays, U/S, labs)? Why? @ -None What meds were considered but not given or refused? Why? @ -None Did you discuss the management of the patient with other professionals (professionals i.e. , PA, SOLUTIONS DEVELOPER, lab, RT, psych nurse, social media editor, aluminum siding applicator, teacher, police officer crime prevention, case checker)? Give summary @ -No Was smoking cessation discussed for >3mins.? @ -No Was critical care preformed (if so, how long)? @ -No Were there social determinants of health that impacted care today? How? (Homelessness, low income, unemployed, alcoholism, drug addiction, transportation, low edu. Level, literacy, decrease access to med. care, fpc, rehab)? @ -No Was there de-escalation of care discussed even if they declined (Discuss DNR or withdrawal of care, Hospice)? DNR status @ -No What co-morbidities impacted this encounter? (DM, HTN, Smoking, COPD, CAD, Cancer, CVA, ARF, Chemo, Hep., AIDS, mental health diagnosis, sleep apnea, morbid obesity)? @ -None Was patient admitted / discharged? Hospital course, mention meds given and route, prescriptions, significant lab abnormalities, going to OR and other pertinent info. @ -Discharge patient has acute gastritis laboratory studies unremarkable otherwise. Patient discharged on Protonix was given Protonix emergency department will follow-up with GI or surgery for EGD. Undiagnosed new problem with uncertain prognosis? @ -No Drug Therapy requiring intensive monitoring for toxicity (Heparin, Nitro, Insulin, Cardizem)? @ -No Were any procedures done? @ -No Diagnosis/symptom? @ -Gastritis, abdominal pain Acute, or Chronic, or Acute on Chronic? @ -Acute Uncomplicated (without systemic symptoms) or Complicated (systemic symptoms)? @ -Uncomplicated Side effects of treatment? @ -No Exacerbation, Progression, or Severe Exacerbation? @ -No Poses a threat to life or bodily function? How? (Chest pain, [place], [place], pneumonia, PE, COPD, DKA, ARF, appy, cholecystitis, CVA, Diverticulitis, Homicidal, Suicidal, threat to staff... and all critical care pts) @ -No - Lab Data Result diagrams: 11/27/24 07:26 11/27/24 07:26 Lab Results 11/27/24 11/27/24 11/27/24 Range/Units 07:26 07:26 07:26 WBC 7.1 (3.8-10.6) k/uL RBC 4.88 (3.80-5.40) m/uL Hgb 14.5 (11.4-16.0) gm/dL Hct 44.9 (34.0-46.0) % MCV 91.9 (80.0-100.0) fL MCH 29.7 (25.0-35.0) pg MCHC 32.3 (31.0-37.0) g/dL RDW 13.1 (11.5-15.5) % Plt Count 241 (150-450) k/uL MPV 6.8 Neutrophils % 65 % Lymphocytes % 27 % Monocytes % 5 % Eosinophils % 1 % Basophils % 1 % Neutrophils # 4.7 (1.3-7.7) k/uL Lymphocytes # 1.9 (1.0-4.8) k/uL Monocytes # 0.4 (0-1.0) k/uL Eosinophils # 0.1 (0-0.7) k/uL Basophils # 0.1 (0-0.2) k/uL Sodium 136 L (137-145) mmol/L Potassium 4.0 (3.5-5.1) mmol/L Chloride 101 (98-107) mmol/L Carbon Dioxide 24 (22-30) mmol/L Anion Gap 11 mmol/L BUN 17 (7-17) mg/dL Creatinine 0.79 (0.52-1.04) mg/dL Est GFR (CKD-EPI)AfAm 79 (>60 ml/min/1.73 sqM) Est GFR (CKD-EPI)NonAf 68 (>60 ml/min/1.73 sqM) Glucose 130 H (74-99) mg/dL Plasma Lactic Acid Toño 1.3 (0.7-2.0) mmol/L Calcium 10.7 H (8.4-10.2) mg/dL Total Bilirubin 0.8 (0.2-1.3) mg/dL AST 32 (14-36) U/L ALT 21 (4-34) U/L Alkaline Phosphatase 79 (38-126) U/L Troponin I (0.000-0.034) ng/mL Total Protein 8.1 (6.3-8.2) g/dL Albumin 4.8 (3.5-5.0) g/dL Lipase 104 (23-300) U/L 11/27/24 Range/Units 07:26 WBC (3.8-10.6) k/uL RBC (3.80-5.40) m/uL Hgb (11.4-16.0) gm/dL Hct (34.0-46.0) % MCV (80.0-100.0) fL MCH (25.0-35.0) pg MCHC (31.0-37.0) g/dL RDW (11.5-15.5) % Plt Count (150-450) k/uL MPV Neutrophils % % Lymphocytes % % Monocytes % % Eosinophils % % Basophils % % Neutrophils # (1.3-7.7) k/uL Lymphocytes # (1.0-4.8) k/uL Monocytes # (0-1.0) k/uL Eosinophils # (0-0.7) k/uL Basophils # (0-0.2) k/uL Sodium (137-145) mmol/L Potassium (3.5-5.1) mmol/L Chloride (98-107) mmol/L Carbon Dioxide (22-30) mmol/L Anion Gap mmol/L BUN (7-17) mg/dL Creatinine (0.52-1.04) mg/dL Est GFR (CKD-EPI)AfAm (>60 ml/min/1.73 sqM) Est GFR (CKD-EPI)NonAf (>60 ml/min/1.73 sqM) Glucose (74-99) mg/dL Plasma Lactic Acid Toño (0.7-2.0) mmol/L Calcium (8.4-10.2) mg/dL Total Bilirubin (0.2-1.3) mg/dL AST (14-36) U/L ALT (4-34) U/L Alkaline Phosphatase (38-126) U/L Troponin I <0.012 (0.000-0.034) ng/mL Total Protein (6.3-8.2) g/dL Albumin (3.5-5.0) g/dL Lipase (23-300) U/L - EKG Data -: EKG Interpreted by [facility] EKG Comments: EKG performed at 7: 38 sinus bradycardia rate of 59 [place] 171 QRS 101 QT/QTc 419/[address] elevation depression noted. Disposition Clinical Impression: Abdominal pain, Gastritis Disposition: HOME SELF-CARE Condition: Stable Instructions (If sedation given, give patient instructions): Gastritis (ED), Diet for Stomach Ulcers and Gastritis (ED) Additional Instructions: Please return to the Emergency Department if symptoms worsen or any other concerns. Prescriptions: Pantoprazole [Protonix] 40 mg PO DAILY #30 tab Is patient prescribed a controlled substance at d/c from ED?: No Referrals: Maren Jones MD [Primary Care Provider] - 1-2 days Felicia Briones MD [STAFF PHYSICIAN] - 1-2 days Farrukh Lynn MD [Medical Doctor] - 1-2 days Time of Disposition: 10:19
[2024-11-27 07:49] LABS: ALT 21 U/L (4-34); AST 32 U/L (14-36); African American GFR (CKD) 79 (>60 ml/min/1.73 sqM); Albumin 4.8 g/dL (3.5-5.0); Alkaline Phosphatase 79 U/L (38-126); Anion Gap 11 mmol/L; Blood Urea Nitrogen 17 mg/dL (7-17); Calcium 10.7 mg/dL (8.4-10.2); Carbon Dioxide 24 mmol/L (22-30); Chloride 101 mmol/L (98-107); Glucose 130 mg/dL (74-99); Lipase 104 U/L (23-300); Non-African American GFR(CKD) 68 (>60 ml/min/1.73 sqM); Sodium 136 mmol/L (137-145); Total Bilirubin 0.8 mg/dL (0.2-1.3); Total Protein 8.1 g/dL (6.3-8.2)
--- NOTE | 2024-11-27 08:17 | US ---
EXAMINATION TYPE: US gallbladder DATE OF EXAM: 11/27/2024 COMPARISON: CT: 10/16/16 CLINICAL INDICATION: Female, 89 years old with history of pain; RUQ pain TECHNIQUE: Grayscale and color Doppler imaging of the right upper quadrant was performed. FINDINGS: EXAM MEASUREMENTS: Liver Length: 14.1 cm Gallbladder Wall: 0.23 cm CBD: not visualized Right Kidney: 7.9 x 4.0 x 3.8 cm SECURITY SHIFT MANAGER NOTES:Limited due to excessive bowel gas in RUQ Pancreas: tail obscured by overlying bowel gas Liver: wnl Gallbladder: limited by overlying bowel gas, parts seen appear wnl Evidence for sonographic Gibbons's sign: No CBD: not seen Right Kidney: wnl Suboptimal evaluation of entire pancreas and gallbladder. IMPRESSION: Suboptimal study. No shadowing mobile gallstones identified. No sonographic evidence for acute cholecystitis. [facility], , 11/27/2024 8:15 AM
[2024-11-27] MEDS: HYDROmorphone 0.5 MG/0.5 ML SYRINGE IVP STA (09:13)
[2024-11-27 09:16] VITALS: RESP 16
--- NOTE | 2024-11-27 09:27 | CT ---
EXAMINATION TYPE: CT abdomen pelvis w con DATE OF EXAM: 11/27/2024 COMPARISON: NONE CLINICAL INDICATION: Female, 89 years old with history of abd pain, abd pain, TECHNIQUE: CT scan of the abdomen and pelvis is performed with IV Contrast, patient injected with mL of Isovue 3 00., (none if empty) Oral contrast used: without Oral Contrast (none if empty) CT DLP: 854.6 mGycm, Automated exposure control for dose reduction was used. FINDINGS: LUNG BASES: There is anterior medial right-sided diaphragmatic hernia containing fat along with nondi lated portion of transverse colon. Mild left basilar linear scarring and/or atelectasis. LIVER/GB: There is heterogeneously hypodense suggesting diffuse fatty infiltration.. PANCREAS: No significant abnormality is seen. SPLEEN: No significant abnormality is seen. ADRENALS: No significant abnormality is seen. KIDNEYS: Incidental 1.5 cm thin-walled simple cyst laterally lower pole of the right kidney. No follo w-up necessary. BOWEL: There is 2.5 cm duodenal diverticulum coronal image 30 along second/third portion. Suboptimal evaluation without enteric contrast. No abnormal small or large bowel dilatation is seen. Stomach is poorly distended and thus suboptimally evaluated. Moderate wall thickening is seen. Significant sigmo id colonic diverticulosis. No CT evidence for acute diverticulitis. No abnormal small or large bowel dilatation. Monitoring cecum into the anterior midabdomen is present. Moderate fecal prominence in th e cecum is noted. Mild/moderate fecal prominence in the right and transverse colon. Some small bowel loops have mild wall thickening. UTERUS/ADNEXA: No gross abnormality seen. LYMPH NODES: No greater than 1cm abdominal or pelvic lymph nodes are appreciated. OSSEOUS STRUCTURES: Multilevel spurring and bridging osteophytes in the thoracic spine. Multilevel v acuum disc phenomenon and disc space narrowing. There is grade 1 anterolisthesis L4 on L5. There is m oderate to severe disc space narrowing and vacuum disc phenomenon at L4-L5 and L5-S1 levels. Prominen t facet arthropathy in the lower lumbar spine is seen. OTHER: No significant additional abnormality is seen. IMPRESSION: 1. Possible uncomplicated gastritis and/or enteritis versus product of poor distention. Correlate cli nically. No bowel obstruction. There is mild to moderate proximal colonic fecal stasis and/or constip ation. 2. There is anterior medial right sided diaphragmatic hernia containing portion of colon. Advise none mergent cardiothoracic surgical evaluation to further evaluate if this is not a known finding. [facility], , 11/27/2024 9:25 AM
[2024-11-27] MEDS: PANTOPRAZOLE 40 MG/10 ML VIAL IVP STA (10:37)
[2024-11-27 10:42] VITALS: BP 147/71; PULSE 62
== END 2024-11-27 10:45 | disposition home or self-care (01) ==
LOC: EC 06:53
DX: K29.70 Gastritis, unspecified, without bleeding (principal); R00.1 Bradycardia, unspecified; K44.9 Diaphragmatic hernia without obstruction or gangrene
CPT/HCPCS: 36415; 93005; 80053; 83605; 83690; 84484; 85025; 76705; 74177; 99284; 96374; 96375 ×2; 96361 ×2; J1885; J1171; Q9967; J2470

== ENCOUNTER 2024-11-28 19:19 | Emergency (ER) | payer MEDICARE, OTHER ==
--- NOTE | 2024-11-28 20:04 | ED ---
Abdominal Pain HPI - General Source: patient <Zee Eduardo - Last Filed: 11/28/24 20:03> <Liza Obrien - Last Filed: 11/29/24 01:16> - General Stated Complaint: Abd/Back Pain Time Seen by Provider: 11/28/24 20:03 - History of Present Illness Initial Comments: Quick [id number] female presenting for abdominal pain. States she has had several ER visits for this pain recently. She recently underwent CT abdomen/pelvis and ultrasound of the gallbladder and discharged with Protonix. Reports she has not had a bowel movement in 2 days. (Zee Eduardo) This is an 89-year female presents emergency room with family for complaint of abdominal pain. Patient was evaluated yesterday, 11/27/2024 for similar complaints where she underwent extensive evaluation clued laboratory testing, CT imaging and ultrasound where she was diagnosed with gastritis and discharged home on Protonix. Patient states that she has not had a bowel movement in 2 days. She took magnesium citrate at home and since she has been in the emergency room and she has had 5 large bowel movements and states that pain has significantly improved. States that earlier today she felt nauseous however the symptoms have decided. She denies urinary complaints, hematochezia, melena, chest pain, difficulty breathing. (Liza Obrien) - Related Data Home Medications Medication Instructions Recorded Confirmed Albuterol Nebulized [Ventolin 2.5 mg INHALATION RT-Q6H PRN 10/16/16 10/16/16 Nebulized] Ascorbic Acid [Vitamin C] 500 mg PO DAILY 10/16/16 10/16/16 Biotin 5 mg PO DAILY 10/16/16 10/16/16 Calcium Carbonate [Calcium] 600 mg PO BID 10/16/16 10/16/16 Cyanocobalamin [Vitamin B-12] 500 mcg PO DAILY 10/16/16 10/16/16 Multivitamins, Thera [Multivitamin] 1 tab PO DAILY 10/16/16 10/16/16 [place]-3 Fatty Acids/Fish Oil [Fish 1 cap PO BID 10/16/16 10/16/16 Oil 1,000 mg Softgel] Previous Rx's Medication Instructions Recorded Azithromycin [Zithromax Z-pack (6 0 mg PO DIRECTED #6 tab 10/16/16 tabs)] Benzonatate [Tessalon Perles] 100 mg PO TID #30 cap 10/16/16 Ibuprofen [Motrin] 600 mg PO Q8HR PRN #30 tab 10/16/16 Lidocaine 5% Patch [Lidoderm] 1 patch TOPICAL DAILY #10 patch 05/01/23 Naproxen [EC-Naprosyn] 500 mg PO BID #30 tab 05/01/23 methocarbamoL [Robaxin-750] 750 mg PO TID #30 tab 05/01/23 Pantoprazole [Protonix] 40 mg PO DAILY #30 tab 11/27/24 Allergies Allergy/AdvReac Type Severity Reaction Status Date / Time No Known Allergies Allergy Verified 11/28/24 20:50 Review of Systems ROS Other: All systems not noted in ROS Statement are negative. <EduardoZee - Last Filed: 11/28/24 20:03> ROS Other: All systems not noted in ROS Statement are negative. <Liza Obrien - Last Filed: 11/29/24 01:16> ROS Statement: Those systems with pertinent positive or pertinent negative responses have been documented in the HPI. Past Medical History Past Medical History: Osteoarthritis (OA) Additional Past Medical History / Comment(s): Mildly allergic to the sun History of Any Multi-Drug Resistant Organisms: None Reported Past Surgical History: Joint Replacement Additional Past Surgical History / Comment(s): lt knee replacement Past Psychological History: No Psychological Hx Reported Smoking Status: Never smoker Past Alcohol Use History: None Reported Past Drug Use History: None Reported - Past Family History Father Family Medical History: Cancer Additional Family Medical History / Comment(s): lung Mother Additional Family Medical History / Comment(s): at age approx 90 <JayceZee - Last Filed: 11/28/24 20:03> General Exam <EduardoZee - Last Filed: 11/28/24 20:03> General appearance: alert, in no apparent distress ENT exam: Present: normal exam, mucous membranes moist Neck exam: Present: normal inspection. Absent: tenderness, meningismus, lymphadenopathy Respiratory exam: Present: normal lung sounds bilaterally. Absent: respiratory distress, wheezes, rales, rhonchi, stridor Cardiovascular Exam: Present: regular rate, normal rhythm, normal heart sounds. Absent: systolic murmur, diastolic murmur, rubs, gallop, clicks GI/Abdominal exam: Present: soft, normal bowel sounds. Absent: distended, tenderness, guarding, rebound, rigid Extremities exam: Present: normal inspection, full ROM, normal capillary refill. Absent: tenderness, pedal edema, joint swelling, calf tenderness Back exam: Present: normal inspection <Liza Obrien - Last Filed: 11/29/24 01:16> - General Exam Comments Initial Comments: Visual Physical Exam General: Well-appearing, nontoxic, no acute distress. Head: Normocephalic, atraumatic Eyes: PERRLA, EOMI ENT: Airway patent Chest: Nonlabored breathing Skin: No visual rash, normal skin tone Neuro: Alert and oriented 3 Musculoskeletal: No gross abnormalities (Zee Eduardo) Course Vital Signs 11/28/24 11/28/24 20:42 22:14 Temperature 98.1 F Pulse Rate 89 67 Respiratory 18 19 Rate Blood Pressure 124/74 136/78 O2 Sat by Pulse 94 L 96 Oximetry Medical Decision Making <Zee Eduardo - Last Filed: 11/28/24 20:03> - Lab Data Result diagrams: 11/28/24 22:11 11/28/24 22:11 <Liza Obrien - Last Filed: 11/29/24 01:16> - Medical Decision Making I completed the quick note portion of this chart signed Zee Eduardo PA-C ([facility]) Was pt. sent in by a medical professional or institution ([facility], [employer], urgent care, hospital, or long term...) When possible be specific @ -No Did you speak to anyone other than the patient for history (EMS, parent, family, police, friend...)? What history was obtained from this source @ -No Did you review nursing and triage notes (agree or disagree)? Why? @ -I reviewed and agree with nursing and triage notes Were old charts reviewed (outside hosp., previous admission, EMS record, old EKG, old radiological studies, urgent care reports/EKG's, long term records)? Report findings @ -Reviewed patient's visit from 11/27/2024 where she underwent extensive evaluation including CT imaging of the pelvis and ultrasound where she was diagnosed with gastritis. Differential Diagnosis (chest pain, altered mental status, abdominal pain women, abdominal pain men, vaginal bleeding, weakness, fever, dyspnea, syncope, headache, dizziness, GI bleed, back pain, seizure, CVA, palpatations, mental health, musculoskeletal)? @ -Differential Abdominal Pain Women: Appendicitis, Cholecystitis, diverticulosis, ischemic bowel, pancreatitis, hepatitis, UTI, gastroenteritis, AAA, incarcerated hernia, bowel obstruction, constipation, inflammatory bowel, hepatitis, peptic ulcer disease, splenic infarction, perforated viscus, vulvitis, ovarian torsion, PID, kidney stone, placenta abruption, this is not meant to be an all-inclusive list EKG interpreted by me (3pts min.). @ -none X-rays interpreted by me (1pt min.). @ -X-ray KUB small amount of stool throughout the colon with no evidence for acute process CT interpreted by me (1pt min.). @ -None done U/S interpreted by me (1pt. min.). @ -None done What testing was considered but not performed or refused? (CT, X-rays, U/S, labs)? Why? @ -None What meds were considered but not given or refused? Why? @ -None Did you discuss the management of the patient with other professionals (professionals i.e. , PA, [employer], lab, RT, psych nurse, social services technician, surgical nurse, teacher, learning and development officer, foster care case manager)? Give summary @ -No Was smoking cessation discussed for >3mins.? @ -No Was critical care preformed (if so, how long)? @ -No Were there social determinants of health that impacted care today? How? (Homelessness, low income, unemployed, alcoholism, drug addiction, transportation, low edu. Level, literacy, decrease access to med. care, intermediate, rehab)? @ -No Was there de-escalation of care discussed even if they declined (Discuss DNR or withdrawal of care, Hospice)? DNR status @ -No What co-morbidities impacted this encounter? (DM, HTN, Smoking, COPD, CAD, Cancer, CVA, ARF, Chemo, Hep., AIDS, mental health diagnosis, sleep apnea, morbid obesity)? @ -None Was patient admitted / discharged? Hospital course, mention meds given and route, prescriptions, significant lab abnormalities, going to OR and other pertinent info. @ -Discharge. 89 year old female presenting with abdominal pain. Patient was originally evaluated in the emergency department waiting room as a quick note. on my evaluation of the patient is resting company no signs acute distress. Her vitals are stable. Abdominal examination is unremarkable. Patient states that she has had multiple bowel movements since pain Emergency Department her abdominal pain has resolved. Laboratory testing within normal limits. Patient is stable for discharge. Case discussed with Dr. Ga Undiagnosed new problem with uncertain prognosis? @ -No Drug Therapy requiring intensive monitoring for toxicity (Heparin, Nitro, Ins ulin, Cardizem)? @ -No Were any procedures done? @ -No Diagnosis/symptom? @ -Constipation Acute, or Chronic, or Acute on Chronic? @ -Acute Uncomplicated (without systemic symptoms) or Complicated (systemic symptoms)? @ -Uncomplicated Side effects of treatment? @ -No Exacerbation, Progression, or Severe Exacerbation? @ -No Poses a threat to life or bodily function? How? (Chest pain, [place], [place], pneumonia, PE, COPD, DKA, ARF, appy, cholecystitis, CVA, Diverticulitis, Homicidal, Suicidal, threat to staff... and all critical care pts) @ -No (Liza Obrien) - Lab Data Lab Results 11/28/24 11/28/24 11/28/24 Range/Units 22:11 22:11 22:11 WBC 8.7 (3.8-10.6) k/uL RBC 4.41 (3.80-5.40) m/uL Hgb 13.1 (11.4-16.0) gm/dL Hct 40.6 (34.0-46.0) % MCV 92.1 (80.0-100.0) fL MCH 29.8 (25.0-35.0) pg MCHC 32.3 (31.0-37.0) g/dL RDW 13.4 (11.5-15.5) % Plt Count 216 (150-450) k/uL MPV 7.4 Neutrophils % 72 % Lymphocytes % 20 % Monocytes % 5 % Eosinophils % 1 % Basophils % 1 % Neutrophils # 6.2 (1.3-7.7) k/uL Lymphocytes # 1.7 (1.0-4.8) k/uL Monocytes # 0.4 (0-1.0) k/uL Eosinophils # 0.1 (0-0.7) k/uL Basophils # 0.1 (0-0.2) k/uL Sodium 135 L (137-145) mmol/L Potassium 4.1 (3.5-5.1) mmol/L Chloride 102 (98-107) mmol/L Carbon Dioxide 26 (22-30) mmol/L Anion Gap 7 mmol/L BUN 18 H (7-17) mg/dL Creatinine 0.71 (0.52-1.04) mg/dL Est GFR (CKD-EPI)AfAm 89 (>60 ml/min/1.73 sqM) Est GFR (CKD-EPI)NonAf 77 (>60 ml/min/1.73 sqM) Glucose 110 H (74-99) mg/dL Plasma Lactic Acid Toño 0.9 (0.7-2.0) mmol/L Calcium 10.3 H (8.4-10.2) mg/dL Total Bilirubin 1.1 (0.2-1.3) mg/dL AST 36 (14-36) U/L ALT 19 (4-34) U/L Alkaline Phosphatase 68 (38-126) U/L Total Protein 7.1 (6.3-8.2) g/dL Albumin 4.1 (3.5-5.0) g/dL Lipase 83 (23-300) U/L Disposition <Zee Eduardo - Last Filed: 11/28/24 20:03> Is patient prescribed a controlled substance at d/c from ED?: No Time of Disposition: 23:08 <Liza Obrien - Last Filed: 11/29/24 01:16> Clinical Impression: Constipation Disposition: HOME SELF-CARE Condition: Good Instructions (If sedation given, give patient instructions): Constipation (ED) Additional Instructions: Please return to the Emergency Department if symptoms worsen or any other concerns. Referrals: Maren Jones MD [Primary Care Provider] - 1-2 days
[2024-11-28 20:50] VITALS: TEMP 98.1
--- NOTE | 2024-11-28 22:00 | XR ---
EXAMINATION TYPE: XR KUB DATE OF EXAM: 11/28/2024 9:41 PM COMPARISON: None CLINICAL INDICATION: Female, 89 years old with history of constipation; [facility] TECHNIQUE: One radiographic view of the abdomen was obtained. FINDINGS: There is a small stool burden, otherwise, the bowel gas pattern is nonspecific without dila hayde loops of small or large bowel. . Fecal material and gas are demonstrated throughout the colon and rectum. There is no evidence for organomegaly or pneumoperitoneum. No acute osseous process. No ab normal calcifications are present. IMPRESSION: Small amount of stool throughout colon. Nonspecific bowel gas pattern without radiographic evidence f or acute process. [facility], , 11/28/2024 9:58 PM
[2024-11-28 22:15] VITALS: BP 136/78; PULSE 67; RESP 19
[2024-11-28 22:33] LABS: Basophils # (A) 0.1 k/uL (0-0.2); Basophils % (A) 1 %; Eosinophils # (A) 0.1 k/uL (0-0.7); Eosinophils % (A) 1 %; HCT 40.6 % (34.0-46.0); HGB 13.1 gm/dL (11.4-16.0); Lymphocytes # (A) 1.7 k/uL (1.0-4.8); Lymphocytes % (A) 20 %; MCH 29.8 pg (25.0-35.0); MCHC 32.3 g/dL (31.0-37.0); MCV 92.1 fL (80.0-100.0); Mean Platelet Volume 7.4; Monocytes # (A) 0.4 k/uL (0-1.0); Monocytes % (A) 5 %; Neutrophils # (A) 6.2 k/uL (1.3-7.7); Neutrophils % (A) 72 %; Platelet Count 216 k/uL (150-450); RBC 4.41 m/uL (3.80-5.40); RDW 13.4 % (11.5-15.5); WBC 8.7 k/uL (3.8-10.6)
[2024-11-28 22:45] LABS: ALT 19 U/L (4-34); AST 36 U/L (14-36); African American GFR (CKD) 89 (>60 ml/min/1.73 sqM); Albumin 4.1 g/dL (3.5-5.0); Alkaline Phosphatase 68 U/L (38-126); Anion Gap 7 mmol/L; Blood Urea Nitrogen 18 mg/dL (7-17); Calcium 10.3 mg/dL (8.4-10.2); Carbon Dioxide 26 mmol/L (22-30); Chloride 102 mmol/L (98-107); Glucose 110 mg/dL (74-99); Lipase 83 U/L (23-300); Non-African American GFR(CKD) 77 (>60 ml/min/1.73 sqM); Potassium 4.1 mmol/L (3.5-5.1); Sodium 135 mmol/L (137-145); Total Bilirubin 1.1 mg/dL (0.2-1.3); Total Protein 7.1 g/dL (6.3-8.2)
== END 2024-11-28 23:18 | disposition home or self-care (01) ==
LOC: EC 19:19
DX: K59.00 Constipation, unspecified (principal)
CPT/HCPCS: 36415; 74018; 80053; 83605; 83690; 85025; 99284